=== PATIENT | female | born 1960 | race American Indian/Alaskan Native ===

== ENCOUNTER 2018-10-17 10:08 | Emergency (ER) | payer SELFPAY ==
[2018-10-17 10:19] VITALS: BP 150/69
--- NOTE | 2018-10-17 10:48 | Emergency Department Report ---
ED Abdominal Pain HPI - General Chief Complaint: Nausea/Vomiting/Diarrhea Stated Complaint: UPSET STOMACH/VOMITING Time Seen by Provider: 10/17/18 10:33 Source: patient Mode of arrival: Ambulatory Limitations: No Limitations - History of Present Illness Initial Comments: Mrs. Jimenez is a very pleasant 58-year-old female with history of hypertension, thyroid disease and [id number] diabetes depression who presents with upset stomach and nausea diarrhea for the last 2 weeks. Denies abdominal pain. No hematemesis. She started metformin 5 days ago. She also abruptly stopped all of her psychotropic medicines in August. In June she was hospitalized at a psychiatric facility for suicidal ideation. After she was discharged, she was placed on a whole host of medications which she felt were too much for her system. She also did not know why she needed so many medications. After 2 months of taking these medications, she abruptly stopped taking them without consulting her personal psychiatrist. Her PCP is Dr. Galindo. 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 She has a personal psychiatrist. Next psychiatrist appointment is in 2 weeks History of colonoscopy 2-3 years ago MD Complaint: other (nausea diarrhea) -: Gradual (2 weeks), week(s) (2) Consistency: intermittent Improves With: nothing Worsens With: nothing Context: other (medication changes) - Related Data Home Medications Medication Instructions Recorded Confirmed Last Taken Escitalopram [Lexapro] 10 mg PO DAILY 05/23/15 05/23/15 Unknown Lisinopril [Zestril TAB] 20 mg PO QDAY 05/23/15 05/23/15 Unknown Meloxicam [Mobic] 7.5 mg PO QDAY 05/23/15 05/23/15 Unknown metFORMIN [Glucophage] 500 mg PO BID 05/23/15 05/23/15 Unknown Previous Rx's Medication Instructions Recorded Last Taken Type HYDROcodone/APAP 5-325 [[place] 1 - 2 each PO Q6HR PRN #20 tablet 05/23/15 Unknown Rx 5/325] Promethazine [Phenergan TAB] 25 mg PO Q6HR PRN #20 tab 05/23/15 Unknown Rx Promethazine [Phenergan TAB] 25 mg PO Q6HR PRN #10 tab 10/17/18 Unknown Rx Allergies Allergy/AdvReac Type Severity Reaction Status Date / Time No Known Allergies Allergy Unverified 05/23/15 03:36 ED Review of Systems ROS: Stated complaint: UPSET STOMACH/VOMITING Other details as noted in HPI Comment: Unobtainable due to pts medical conditions Constitutional: denies: fever, malaise Respiratory: denies: cough Cardiovascular: denies: chest pain ED Past Medical Hx - Past Medical History Previous Medical History?: Yes Hx Hypertension: Yes Hx Diabetes: Yes Additional medical history: Hyperthyroidism - Surgical History Past Surgical History?: Yes Hx Appendectomy: Yes Additional Surgical History: Renal stone removal, adrenal gland tumor removal - Social History Smoking Status: Never Smoker Substance Use Type: None - Medications Home Medications: Home Medications Medication Instructions Recorded Confirmed Last Taken Type Escitalopram [Lexapro] 10 mg PO DAILY 05/23/15 05/23/15 Unknown History HYDROcodone/APAP 5-325 [[place] 1 - 2 each PO Q6HR PRN #20 tablet 05/23/15 Unknown Rx 5/325] Lisinopril [Zestril TAB] 20 mg PO QDAY 05/23/15 05/23/15 Unknown History Meloxicam [Mobic] 7.5 mg PO QDAY 05/23/15 05/23/15 Unknown History Promethazine [Phenergan TAB] 25 mg PO Q6HR PRN #20 tab 05/23/15 Unknown Rx metFORMIN [Glucophage] 500 mg PO BID 05/23/15 05/23/15 Unknown History Promethazine [Phenergan TAB] 25 mg PO Q6HR PRN #10 tab 10/17/18 Unknown Rx ED Physical Exam - General Limitations: No Limitations General appearance: alert, in no apparent distress, other (appears well, hydrated) - Head Head exam: Present: atraumatic, normocephalic - Eye Eye exam: Present: normal appearance - ENT ENT exam: Present: normal orophraynx, mucous membranes moist - Neck Neck exam: Present: normal inspection, full ROM. Absent: tenderness, meningismus - Respiratory Respiratory exam: Present: normal lung sounds bilaterally. Absent: respiratory distress, wheezes, rales, rhonchi - Cardiovascular Cardiovascular Exam: Present: regular rate, normal rhythm, normal heart sounds. Absent: systolic murmur, diastolic murmur, rubs, gallop - GI/Abdominal GI/Abdominal exam: Present: soft, normal bowel sounds. Absent: distended, tenderness, guarding, rebound - Extremities Exam Extremities exam: Present: normal inspection - Back Exam Back exam: Present: normal inspection - Neurological Exam Neurological exam: Present: alert, oriented X3 - Psychiatric Psychiatric exam: Present: normal affect, normal mood. Absent: depressed, agitated, anxious, flat affect, manic, homicidal ideation, suicidal ideation - Skin Skin exam: Present: warm, dry, intact, normal color. Absent: rash ED Course Vital Signs 10/17/18 10:15 Temperature 98.0 F Pulse Rate 63 Respiratory 16 Rate Blood Pressure 150/69 O2 Sat by Pulse 99 Oximetry ED Medical Decision Making - Medical Decision Making Mrs. Jimenez presents with nausea diarrhea. I suspect that she is having adverse effects from abruptly stopping psychotropic medicines in addition to GI upset and diarrhea which could be caused by metformin. I strongly encouraged her to follow up with her PCP in order to make adjustments to her medication regimen. I also asked her to consult her psychiatrist by phone prior to her next appointment in October. I'll prescribe promethazine. I do not suspect infection or acute intra-abdominal process. I also recommended eating smaller meals. Critical care attestation.: If time is entered above; I have spent that time in minutes in the direct care of this critically ill patient, excluding procedure time. ED Disposition Clinical Impression: Nausea, Diarrhea, Medication adverse effect Disposition: [id number] TO HOME OR SELFCARE Is pt being admited?: No Does the pt Need Aspirin: No Condition: Stable Instructions: Acute Diarrhea (ED), Acute Nausea and Vomiting (ED) Prescriptions: Promethazine [Phenergan TAB] 25 mg PO Q6HR PRN #10 tab PRN Reason: Nausea Referrals: DAVE GALINDO PA [Referring] - LASHANDA BONDS [Primary Care Provider] - [facility]
[2018-10-17 11:44] LABS: Bacteria,Urine 1+ /HPF (Negative); Bilirubin,Urine NEG (Negative); Blood,Urine NEG (Negative); Color,Urine Yellow (Yellow); Mucus,Urine FEW /HPF; Protein,Urine <15 mg/dL mg/dL (Negative); RBC,Urine < 1.0 /HPF (0.0-6.0); Urobilinogen,Urine < 2.0 mg/dL (<2.0)
== END 2018-10-17 10:54 | disposition home or self-care (01) ==
LOC: ED 10:08
DX: R11.0 Nausea (principal); R19.7 Diarrhea, unspecified; I10 Essential (primary) hypertension; E11.9 Type 2 diabetes mellitus without complications; F32.9 Major depressive disorder, single episode, unspecified; E05.90 Thyrotoxicosis, unspecified without thyrotoxic crisis or storm; Z90.49 Acquired absence of other specified parts of digestive tract
CPT/HCPCS: 81001; 82962; 99283